=== PATIENT | female | born 1965 | race Caucasian/White ===

== ENCOUNTER → 2016-07-09 10:33 | Outpatient (CLI) | payer MEDICAID ==
--- NOTE | 2016-07-23 14:37 | ST ---
PATIENT:SEVERINO MENDENHALL MEDICAL RECORD: [id number] SEX: F LOCATION:[facility] ORDER #: ADMISSION DATE: 07/09/16 AGE OF PATIENT: 51 REFERRING PHYSICIAN: INTERPRETING PHYSICIAN: JAVED MEZA MD DATE OF SERVICE: 07/09/2016 Nuclear Stress Test The patient was exercised on standard Lexiscan protocol with 30.6 mCi injected at peak stress. Rest images were done previously with 11.9 mCi. FINDINGS: Gated SPECT reveals preserved ejection fraction greater than 70% with good wall motion and thickening and brightening throughout all segments. SPECT imaging sestamibi is used as myocardial perfusion agent. There is homogeneous uptake throughout all segments at rest and stress with no evidence of inducible ischemia or previous infarction. OVERALL IMPRESSION: 1. This is a normal nuclear stress test with no evidence of inducible ischemia or previous infarction. 2. Gated SPECT reveals preserved ejection fraction greater than 60%, in this patient with ongoing symptomatology, the current scan does not suggest the presence of hemodynamically significant coronary artery disease. We will proceed with noncardiac chest pain workup. TRANSINT:[id number] Voice Confirmation ID: [id number] DOCUMENT ID: [id number] JAVED MEZA MD at [id number] CC: [id number] DICTATION DATE: 07/15/16 1214 INTELLIGENCE OFFICER BASIC: 07/16/16 0137 DEP CLI 07/09/[address] [id number]
== END | disposition home or self-care (01) ==
LOC: D.NM 10:33
DX: I20.9 Angina pectoris, unspecified (principal)

== ENCOUNTER → 2016-11-13 08:17 | Outpatient (CLI) | payer MEDICARE | END | disposition home or self-care (01) | LOC: D.MRI 11-11 15:30 | DX: M25.561 Pain in right knee (principal); M25.562 Pain in left knee ==